=== PATIENT | female | born 1980 | race American Indian/Alaskan Native ===

== ENCOUNTER 2016-12-02 10:15 | Emergency (ER) | payer MEDICAID ==
[2016-12-02 10:36] VITALS: BP 113/84
[2016-12-02] MEDS ORDERED: NORCO 5/325 PO ONE (11:56)
[2016-12-02 12:17] LABS: Bacteria,Urine 4+ /HPF (Negative); Bilirubin,Urine NEG (Negative); Blood,Urine LG (Negative); Ketones,Urine NEG (Negative); Leukocyte Esterase,Urine SM (Negative); Mucus,Urine FEW /HPF; Nitrite,Urine NEG (Negative); Protein,Urine <15 mg/dL mg/dL (Negative); Urobilinogen,Urine < 2.0 mg/dL (<2.0)
--- NOTE | 2016-12-02 13:07 | XRay Report ---
Bilateral tib/fib: Trauma, pain. AP and lateral projections demonstrates mild anterior subcutaneous edema in the pretibial regions bilaterally. No focal finding. There is no fracture and no dislocation. The bones appear well-mineralized. Impression: Mild pretibial swelling bilaterally.
--- NOTE | 2016-12-02 14:15 | Emergency Department Report ---
Addendum entered and electronically signed by RAFY HEATON PA 12/02/16 19:58 : Well's Criteria for DVT: Patient has a score and very low probability for DVT Original Note: Entered by MARCO CORADO, acting as scribe for RAFY HEATON PA. HPI - HPI HPI: 36 y/o female with a PMHx of sickle cell trait presents to the ED c/o bilateral lower leg pain that began 3 days ago. Patient states she fell backwards down a flight of stairs 3 days ago. Rates pain an 8/10 in severity, which she describes as aching in quality. Denies any recent long travels. Patient's secondary complaint consists of low back pain that began 1 year ago. Denies dysuria, urgency, and frequency. Patient's third complaint consists of abdominal pain around her incision scar that began 2 years ago. Denies fever, chills, and drainage from sight. NKDA. Pain is 6 out of 10 cramping in the kitchen. Patient did not have any head injury with fall, no dizziness or blurred vision. She denies any headache or neck pain. <RAFY HEATON - Last Filed: 12/02/16 13:49> <LADI HIGGINBOTHAM - Last Filed: 12/02/16 20:01> - General Chief Complaint: Pain General Time Seen by Provider: 12/02/16 11:25 ED Past Medical Hx - Past Medical History Previous Medical History?: Yes Hx Hypertension: No Hx Congestive Heart Failure: No Hx Diabetes: No Hx Liver Disease: No Hx Renal Disease: No Hx Sickle Cell Disease: Yes (Sickle Cell Trait) Hx Seizures: No Hx Asthma: No Hx COPD: No - Surgical History Past Surgical History?: Yes Additional Surgical History: 3 c-sections. oral surgery - Family History Family history: hypertension - Social History Smoking Status: Current Every Day Smoker Substance Use Type: None <RAFY HEATON - Last Filed: 12/02/16 13:49> <LADI HIGGINBOTHAM - Last Filed: 12/02/16 20:01> - Medications Home Medications: Home Medications Medication Instructions Recorded Confirmed Last Taken Type Acetaminophen/Codeine 1 tab PO Q6H PRN #10 tab 09/05/14 Unknown Rx [Acetaminophen-Codeine #3 TAB] Ibuprofen [Motrin] 800 mg PO Q8H PRN #20 tablet 09/05/14 Unknown Rx Penicillin Vk [Veetids TAB] 500 mg PO QID #40 tablet 09/05/14 Unknown Rx Ibuprofen [Motrin] 600 mg PO Q8H PRN #15 tablet 12/02/16 Unknown Rx Nitrofurantoin [place]/M-Cryst 100 mg PO Q12HR #14 capsule 12/02/16 Unknown Rx [Macrobid CAP] traMADol [Ultram] 50 mg PO Q6HR PRN #20 tablet 12/02/16 Unknown Rx ED Review of Systems ROS: Stated complaint: BODY/LEG/ABD PAIN Other details as noted in HPI Comment: All other systems reviewed and negative Constitutional: denies: chills, fever Eyes: denies: vision change Respiratory: denies: cough, shortness of breath, wheezing Cardiovascular: denies: chest pain, palpitations, edema, syncope Gastrointestinal: abdominal pain (around incision scar). denies: nausea, vomiting, diarrhea, constipation, hematochezia Genitourinary: other (Currently on menses). denies: urgency, dysuria, frequency , hematuria, discharge Musculoskeletal: back pain (low), arthralgia (bilateral lower leg pain). denies : joint swelling, myalgia Skin: denies: rash, lesions Neurological: denies: headache, weakness, numbness, paresthesias, confusion, abnormal gait <RAFY HEATON A - Last Filed: 12/02/16 13:49> ROS: Stated complaint: BODY/LEG/ABD PAIN Other details as noted in HPI <LADI HIGGINBOTHAM P - Last Filed: 12/02/16 20:01> Physical Exam - Physical Exam Vital Signs: Vital Signs 12/02/16 10:31 Temperature 98 F Pulse Rate 88 Respiratory 20 Rate Blood Pressure 113/84 O2 Sat by Pulse 100 Oximetry General: General: well nourished, well developed, 36 year old female in no acute distress and nontoxic in appearance Physical Exam: Head: Normocephalic atraumatic. No laceration, contusion or abrasion. Mouth: Moist, no pharyngeal exudate or erythema. Uvula is midline and oral airway is patent. No facial swelling. No peritonsillar abscesses. Neck: Supple, no C-spine tenderness, no tracheal deviation. Nontender to palpate. no adenopathy Abdomen: Soft, nontender to palpate in all quadrants, normal bowel sounds in all quadrant and negative CVA tenderness bilaterally. scar present and healed. Back: No vertebral or paraspinal tenderness. No saddle anesthesia. Patient able to ambulate without any difficulties. Negative SLR bilaterally. Neurological: GCS of 15, alert and oriented 3. Speech is clear and fluid. Normal gait. No motor or sensory deficit. Normal reflexes. No facial drooping. No pronator drift and negative Romberg. Eyes: Bilateral pupils equal and reactive to light, bilateral EOM intact. Bilateral sclera and conjunctiva without injection. Normal accommodation. No nystagmus Lungs: Clear to auscultate bilaterally no rhonchi wheezes or rales. Normal work of breathing EXT:No CCE. +2 pulses. No neurovascular compromise. Ecchymosis present left and right lower leg. Bilateral lower leg tenderness. Patient refill less than 3 second. Strength is 5 out of 5 to all extremities. No deformities, erythema or swelling noted to joints. No crepitus or effusion to joints. Cardiovascular: S1-S2, regular rate rhythm. No murmurs. Skin: Ecchymosis noted. Bilateral distal lower leg. Tender to palpate. No rashes or lesions. Psych: Normal mood and behavior Head: Normocephalic, atraumatic Mouth: Moist, no pharyngeal exudate or erythema. Nose: Normal external appearance, no drainage. Neck: Supple, no C-spine tenderness, no tracheal deviation. Nontender to palpation. no adenopathy Ears: Bilateral TMs ar without any redness, swelling, or drainage. Bilateral EAC without any redness, swelling, or drainage. Abdomen: Soft, nontender to palpation in all quadrants, normal bowel sounds in all quadrants and negative CVA tenderness bilaterally. Healed incision scar present with no sign of infection Eyes: Bilateral pupils equal and reactive to light, bilateral EOM intact. Bilateral sclera and conjunctiva without injection. Normal accommodation. Lungs: Clear to auscultation bilaterally, no rhonchi, wheezes, or rales. Normal work of breathing. No use of accessory muscles Extremities: Cardiovascular: S1-S2, regular rate, regular rhythm. No murmurs. Skin: Clean, dry, and intact with no rash and no lesions Psych: Normal mood and behavior <FLORINA,RAFY A - Last Filed: 12/02/16 13:49> - Physical Exam Vital Signs: Vital Signs 12/02/16 10:31 Temperature 98 F Pulse Rate 88 Respiratory 20 Rate Blood Pressure 113/84 O2 Sat by Pulse 100 Oximetry <ELVIS HIGGINBOTHAMUS P - Last Filed: 12/02/16 20:01> ED Course Vital Signs 12/02/16 10:31 Temperature 98 F Pulse Rate 88 Respiratory 20 Rate Blood Pressure 113/84 O2 Sat by Pulse 100 Oximetry - Reevaluation(s) Reevaluation #1: 12/02/16 13:56 Given the 5/325 2 tablets emergency room for pain. <RAFY HEATON Sabino - Last Filed: 12/02/16 13:49> Vital Signs 12/02/16 10:31 Temperature 98 F Pulse Rate 88 Respiratory 20 Rate Blood Pressure 113/84 O2 Sat by Pulse 100 Oximetry <DALIAMayraELVISLADI P - Last Filed: 12/02/16 20:01> ED Medical Decision Making - Lab Data Lab Results 12/02/16 Range/Units Unknown Urine Color Yellow (Yellow) Urine Turbidity Cloudy (Clear) Urine pH 6.0 (5.0-7.0) Ur Specific Dougherty 1.015 (1.003-1.030) Urine Protein <15 mg/dl (Negative) mg/dL Urine Glucose (UA) Neg (Negative) mg/dL Urine Ketones Neg (Negative) mg/dL Urine Blood Lg (Negative) Urine Nitrite Neg (Negative) Urine Bilirubin Neg (Negative) Urine Urobilinogen < 2.0 (<2.0) mg/dL Ur Leukocyte Esterase Sm (Negative) Urine WBC (Auto) 9.0 H (0.0-6.0) /HPF Urine RBC (Auto) 2.0 (0.0-6.0) /HPF U Epithel Cells (Auto) 13.0 (0-13.0) /HPF Urine Bacteria (Auto) 4+ (Negative) /HPF Urine Mucus Few /HPF Urine HCG, Qual Negative (Negative) Patient with blood in her urine medications vitamins. Urine culture is pending - Radiology Data Radiology results: report reviewed X-ray of bilateral tib-fib mildperi-tibial swelling without fracture dislocation to the legs. - Medical Decision Making ED course: Patient complaining and also lower back pain which she said is chronic but worse today and also . That's been going on for over 2 years. She is also complaining and that she fell 2 days ago and injured her lower legs with bruising. 3. No pretibial swelling bilateral but no fracture or dislocation. I communicated to the patient her lab results and told him that was negative bad she has a UTI. She has a large amount of blood in her urine because she is on her period and also that her x-ray results were negative for any bone fracture or dislocation and she has contusion. I discussed with the treatment plan and diagnoses and she was understanding and was given [place] 5/325 2 tablets emergency room for pain. Discussed with patient that she will need to follow-up with her [facility] regarding in 2 years. Patient discharged home to follow up regarding contusions and leg she doesn't have a primary care physician so further O2 sats [facility] follow-up primary care and also told her that they have brickmason associated with that [facility] so she will also need to schedule an appointment to follow-up. Patient discharged home in stable condition with understanding of treatment plan. D/C home with prescription for Macrobid and urine culture sent and pending. She was also discharged home with prescription for ultram back and C- section scar pain. <RAFY HEATON A - Last Filed: 12/02/16 13:49> - Medical Decision Making Case discussed with Rafy. Wells Score for DVT negative documented by Rafy. patient reported stable for discharge and no likely signs of DVT on evaluation <LADI HIGGINBOTHAM P - Last Filed: 12/02/16 20:01> Critical care attestation.: If time is entered above; I have spent that time in minutes in the direct care of this critically ill patient, excluding procedure time. <RAFY HEATON A - Last Filed: 12/02/16 13:49> Critical care attestation.: If time is entered above; I have spent that time in minutes in the direct care of this critically ill patient, excluding procedure time. <LADI HIGGINBOTHAM P - Last Filed: 12/02/16 20:01> ED Disposition Is pt being admited?: No Does the pt Need Aspirin: No <RAFY HEATON A - Last Filed: 12/02/16 13:49> <DALIAMayraLADI P - Last Filed: 12/02/16 20:01> Clinical Impression: Accidental fall on or from stairs or steps, Contusion of both lungs, Arthralgia of both lower legs, Acute exacerbation of chronic low back pain, Scar painful, Cystitis with hematuria Disposition: - TO HOME OR SELFCARE Condition: Stable Instructions: Urinary Tract Infection in Women (ED), Contusion in Adults (ED), Arthralgia (ED), Back Pain (ED), Fall Prevention (ED) Additional Instructions: Previous medication as prescribed. Please follow up with [facility] for primary care and follow-up urinary tract infection. Follow-up with Dr. Farah who is her orthopedic doctor for chronic back pain Prescriptions: Ibuprofen [Motrin] 600 mg PO Q8H PRN #15 tablet PRN Reason: Pain Nitrofurantoin [place]/M-Cryst [Macrobid CAP] 100 mg PO Q12HR #14 capsule traMADol [Ultram] 50 mg PO Q6HR PRN #20 tablet PRN Reason: Pain Referrals: [facility] [Outside] - 12/04/16 CARLOS FARAH MD [Staff Physician] - 12/07/16 Forms: Accompanied Note, Work/School Release Form(ED) This documentation as recorded by the MICKIE petersen JASMINE,accurately reflects the service I personally performed and the decisions made by me,RAFY HEATON PA.
== END 2016-12-02 14:22 | disposition home or self-care (01) ==
LOC: ED 10:15
DX: S80.12XA Contusion of left lower leg, initial encounter (principal); S80.11XA Contusion of right lower leg, initial encounter; M54.5 Low back pain; N30.91 Cystitis, unspecified with hematuria; G89.29 Other chronic pain; Z98.890 Other specified postprocedural states; W10.9XXA Fall (on) (from) unspecified stairs and steps, initial encounter; Y93.9 Activity, unspecified; Y92.89 Other specified places as the place of occurrence of the external cause; Y99.9 Unspecified external cause status
CPT/HCPCS: 81001; 81025; 87086; 99283

== ENCOUNTER 2018-11-21 11:27 | Outpatient (CLI) | payer MEDICAID ==
[2018-11-21 11:49] VITALS: BP 117/68
[2018-11-21 13:29] LABS: Bilirubin,Urine NEG (Negative); Blood,Urine NEG (Negative); Color,Urine Yellow (Yellow); Mucus,Urine FEW /HPF; Protein,Urine <15 mg/dL mg/dL (Negative); Urobilinogen,Urine < 2.0 mg/dL (<2.0)
[2018-11-21 13:43] LABS: Amphetamine Screen,Urine PRESUMPTIVE NEGATIVE; Benzodiazepines Screen,Urine PRESUMPTIVE NEGATIVE; Cannabinoid Screen,Urine PRESUMPTIVE NEGATIVE; Methadone Screen,Urine PRESUMPTIVE NEGATIVE; Opiate Screen,Urine PRESUMPTIVE NEGATIVE
[2018-11-21 13:59] LABS: Cocaine Screen,Urine PRESUMPTIVE POSITIVE
--- NOTE | 2018-11-21 15:21 | Ultrasound Report ---
OB ULTRASOUND History: No care. Technique: Transabdominal ultrasound with Doppler interrogation. Gestation: Single Position: Transverse with head to maternal left Amniotic Fluid: Within normal limits Placenta: Right lateral Placental Grade: 1 Heart Rate: 145 BPM Cervical length: 4.3 cm (Normal > 3 cm) It is too early for a anatomical survey NEUROANATOMY VISUALIZED: Choroid Plexus Cisterna Magnum Cerebellum Lateral Ventricle ANATOMY VISUALIZED: Stomach Kidneys Bladder Diaphragm 4 Chamber Heart Heart 3 Vessel Cord Abd. Cord Insert SPINE VISUALIZED: Longitudinal Transverse BPD: 5.1 cm = 21 w 4 d HC: 19.6 cm = 21 w 5 d AC: 17.4 cm = 22 w 2 d FL: 3.9 cm = 22 w 3 d HC/AC Ratio: 1.13 Cephalic Index: 79.5 Estimated Weight: 489 grams LMP: Unknown US Gest. Age = 22 w 0 d EDC: 03/27/19 IMPRESSION: Viable, single intrauterine as described. No acute abnormality is detected.
== END 2018-11-21 14:50 | disposition home or self-care (01) ==
LOC: TRG 11:27
PROVIDERS: ATTEND Obstetrics & Gynecology
DX: O47.03 False labor before 37 completed weeks of gestation, third trimester (principal); Z3A.35 35 weeks gestation of pregnancy
CPT/HCPCS: 76805; 80307; 81001